=== PATIENT | male | born 1990 | race Caucasian/White ===

== ENCOUNTER 2018-11-17 15:18 | Emergency (ER) | payer OTHER ==
[2018-11-17 15:22] VITALS: RESP 18
[2018-11-17] MEDS ORDERED: SODIUM CHLORIDE 0.9% 1,000 ML IV STA (15:34)
--- NOTE | 2018-11-17 15:37 | ED ---
General Adult HPI - General Chief complaint: Urogenital Stated complaint: Rt flank pain Time Seen by Provider: 11/17/18 15:25 Source: patient, RN notes reviewed Mode of arrival: ambulatory Limitations: no limitations - History of Present Illness Initial comments: This a 28-year-old male presents emergency Department with chief complaint of right-sided abdominal, right flank pain. Patient states that he's been having on and off issues for a while but recently has worsened. Patient states that it is much worse when he eats. Patient does admit to occasional nausea but no vomiting, diarrhea, constipation, dysuria or hematuria. Patient states that he has had a HIDA scan years ago in which she was told he had biliary dyskinesia. Patient denies any fever, chills. Denies any chest pain or shortness of breath. - Related Data Home Medications Medication Instructions Recorded Confirmed No Known Home Medications 11/17/18 11/17/18 Allergies Allergy/AdvReac Type Severity Reaction Status Date / Time cefaclor [From Ceclor] Allergy Unknown Verified 11/17/18 16:11 Childhood Review of Systems ROS Statement: Those systems with pertinent positive or pertinent negative responses have been documented in the HPI. ROS Other: All systems not noted in ROS Statement are negative. Past Medical History Past Medical History: No Reported History History of Any Multi-Drug Resistant Organisms: None Reported Past Surgical History: Appendectomy Past Psychological History: No Psychological Hx Reported Smoking Status: Never smoker Past Alcohol Use History: Rare Past Drug Use History: None Reported General Exam Limitations: no limitations General appearance: alert, in no apparent distress Head exam: Present: atraumatic, normocephalic, normal inspection Respiratory exam: Present: normal lung sounds bilaterally. Absent: respiratory distress, wheezes, rales, rhonchi, stridor Cardiovascular Exam: Present: regular rate, normal rhythm, normal heart sounds. Absent: systolic murmur, diastolic murmur, rubs, gallop, clicks GI/Abdominal exam: Present: soft, tenderness (Mild to moderate right upper quadrant), normal bowel sounds. Absent: distended, guarding, rebound, rigid Back exam: Absent: CVA tenderness (R), CVA tenderness (L) Skin exam: Present: warm, dry, intact, normal color. Absent: rash Course Vital Signs 11/17/18 15:19 Temperature 98.1 F Pulse Rate 67 Respiratory 18 Rate Blood Pressure 151/94 O2 Sat by Pulse 100 Oximetry Medical Decision Making - Medical Decision Making 28-year-old male presented for right upper quadrant abdominal pain and right flank pain. Patient had ultrasound, lab work and urinalysis. Patient has multiple large gallstones. This most likely is cause of his pain. Patient will be discharged with follow-up with Dr. Shin for possible cholecystectomy. Patient agrees this plan return parameters were discussed. - Lab Data Result diagrams: 11/17/18 15:48 11/17/18 15:48 Lab Results 11/17/18 11/17/18 11/17/18 Range/Units 15:48 15:48 15:48 WBC 6.6 (3.8-10.6) k/uL RBC 5.34 (4.30-5.90) m/uL Hgb 15.5 (13.0-17.5) gm/dL Hct 45.5 (39.0-53.0) % MCV 85.2 (80.0-100.0) fL MCH 29.0 (25.0-35.0) pg MCHC 34.0 (31.0-37.0) g/dL RDW 13.5 (11.5-15.5) % Plt Count 216 (150-450) k/uL Neutrophils % 63 % Lymphocytes % 24 % Monocytes % 8 % Eosinophils % 3 % Basophils % 1 % Neutrophils # 4.2 (1.3-7.7) k/uL Lymphocytes # 1.5 (1.0-4.8) k/uL Monocytes # 0.5 (0-1.0) k/uL Eosinophils # 0.2 (0-0.7) k/uL Basophils # 0.1 (0-0.2) k/uL Sodium 140 (137-145) mmol/L Potassium 4.4 (3.5-5.1) mmol/L Chloride 106 (98-107) mmol/L Carbon Dioxide 25 (22-30) mmol/L Anion Gap 9 mmol/L BUN 12 (9-20) mg/dL Creatinine 0.69 (0.66-1.25) mg/dL Est GFR (CKD-EPI)AfAm >90 (>60 ml/min/1.73 sqM) Est GFR (CKD-EPI)NonAf >90 (>60 ml/min/1.73 sqM) Glucose 89 (74-99) mg/dL Calcium 9.5 (8.4-10.2) mg/dL Total Bilirubin 1.2 (0.2-1.3) mg/dL AST 27 (17-59) U/L ALT 41 (21-72) U/L Alkaline Phosphatase 59 (38-126) U/L Total Protein 7.2 (6.3-8.2) g/dL Albumin 4.8 (3.5-5.0) g/dL Lipase 135 (23-300) U/L Urine Color Light Yellow Urine Appearance Clear (Clear) Urine pH 5.5 (5.0-8.0) Ur Specific [place] 1.013 (1.001-1.035) Urine Protein Negative (Negative) Urine Glucose (UA) Negative (Negative) Urine Ketones Negative (Negative) Urine Blood Negative (Negative) Urine Nitrite Negative (Negative) Urine Bilirubin Negative (Negative) Urine Urobilinogen <2.0 (<2.0) mg/dL Ur Leukocyte Esterase Negative (Negative) Disposition Clinical Impression: Cholelithiasis Disposition: HOME SELF-CARE Condition: Stable Instructions (If sedation given, give patient instructions): Gallstones (ED) Additional Instructions: Please return to the Emergency Department if symptoms worsen or any other concerns. Is patient prescribed a controlled substance at d/c from ED?: No Referrals: None,Stated [Primary Care Provider] - 1-2 days Nickolas Shin MD [STAFF PHYSICIAN] - 1-2 days Time of Disposition: 16:48
[2018-11-17 16:08] LABS: Basophils # (A) 0.1 k/uL (0-0.2); Basophils % (A) 1 %; Eosinophils # (A) 0.2 k/uL (0-0.7); Eosinophils % (A) 3 %; HCT 45.5 % (39.0-53.0); HGB 15.5 gm/dL (13.0-17.5); Lymphocytes # (A) 1.5 k/uL (1.0-4.8); Lymphocytes % (A) 24 %; MCV 85.2 fL (80.0-100.0); Mean Platelet Volume 6.9; Monocytes # (A) 0.5 k/uL (0-1.0); Monocytes % (A) 8 %; Neutrophils # (A) 4.2 k/uL (1.3-7.7); Neutrophils % (A) 63 %; Platelet Count 216 k/uL (150-450); RBC 5.34 m/uL (4.30-5.90); RDW 13.5 % (11.5-15.5); WBC 6.6 k/uL (3.8-10.6)
[2018-11-17 16:15] LABS: Appearance,Urine Clear (Clear); Bilirubin,Urine Negative (Negative); Blood,Urine Negative (Negative); Color,Urine Light Yellow; Glucose,Urine (UA) Negative (Negative); Ketones,Urine Negative (Negative); Leukocyte Esterase,Urine Negative (Negative); Nitrite,Urine Negative (Negative); PH, Urine 5.5 (5.0-8.0); Protein,Urine Negative (Negative); Specific Gravity,Urine 1.013 (1.001-1.035); Urobilinogen,Urine <2.0 mg/dL (<2.0)
[2018-11-17 16:21] LABS: ALT 41 U/L (21-72); AST 27 U/L (17-59); Albumin 4.8 g/dL (3.5-5.0); Alkaline Phosphatase 59 U/L (38-126); Anion Gap 9 mmol/L; Blood Urea Nitrogen 12 mg/dL (9-20); Calcium 9.5 mg/dL (8.4-10.2); Carbon Dioxide 25 mmol/L (22-30); Chloride 106 mmol/L (98-107); Glucose 89 mg/dL (74-99); Lipase 135 U/L (23-300); Potassium 4.4 mmol/L (3.5-5.1); Sodium 140 mmol/L (137-145); Total Bilirubin 1.2 mg/dL (0.2-1.3); Total Protein 7.2 g/dL (6.3-8.2)
--- NOTE | 2018-11-17 16:42 | US ---
EXAMINATION TYPE: US abdomen limited DATE OF EXAM: 11/17/2018 COMPARISON: NONE CLINICAL HISTORY: Pain -RUQ, right flank. Intermittent RUQ pain for 1-2 years. Patient ate 3-4 hours prior to exam EXAM MEASUREMENTS: Liver Length: 16.0 cm Gallbladder Wall: 0.2 cm CBD: 0.2 cm Right Kidney: 12.6 x 5.7 x 5.9 cm Technical limitations due to overlying bowel content Pancreas: Tail obscured by overlying bowel gas Liver: attenuating, heterogeneous Gallbladder: at least 3 stones noted, 1 near the neck Evidence for sonographic Craven's sign: yes CBD: limited evaluation Right Kidney: no evidence of hydronephrosis IMPRESSION: Multiple large gallstones. No dilated ducts. No gallbladder wall thickening seen.
[2018-11-17 17:06] VITALS: BP 127/83; PULSE 73; TEMP 98
== END 2018-11-17 17:06 | disposition home or self-care (01) ==
LOC: EC 15:18
DX: K80.20 Calculus of gallbladder without cholecystitis without obstruction (principal); Z88.1 Allergy status to other antibiotic agents; Z90.49 Acquired absence of other specified parts of digestive tract
CPT/HCPCS: 36415; 76705; 80053; 81003; 83690; 85025; 99284

== ENCOUNTER 2018-12-02 06:38 | Day surgery (SDC) | payer OTHER ==
[2018-11-27 11:11] VITALS: BMI 36.1
[~2018-12-02 06:38] MED LIST: DEXAMETHASONE SOD PHOSPHATE 10 MG/ML 1 ML VIAL IV ONE; GENTAMICIN 320 MG in SODIUM CHLORIDE 0.9% 100 ML IVPB ONE; HEPARIN SODIUM,PORCINE 5,000 UNIT/ML 1 ML VIAL SQ ONE; HYDROmorphone 0.5 MG/0.5 ML SYRINGE IVP PRN; LACTATED RINGERS 1,000 ML IV SCH; LIDOCAINE 1% 20 ML VIAL (10MG/ML) FOR IV START INTRADERMA PRN; MIDAZOLAM (PF) 2 MG/2 ML VIAL IV PRN; ONDANSETRON 4 MG/2 ML VIAL IVP ONE; SCOPOLAMINE 1.5MG/72HR PATCH TRANSDERM ONE
--- NOTE | 2018-12-02 07:49 | P.GSHP ---
History of Present Illness H&P Date: 12/02/18 Chief Complaint: Right upper quadrant pain This a 28-year-old male presents today for laparoscopic cholestatic. Patient's had complaints of quadrant pain. He is found have cholelithiasis. Past Medical History Past Medical History: No Reported History Additional Past Medical History / Comment(s): CHILDHOOD SEIZURES History of Any Multi-Drug Resistant Organisms: None Reported Past Surgical History: Appendectomy Past Anesthesia/Blood Transfusion Reactions: No Reported Reaction Smoking Status: Never smoker - Past Family History Mother Family Medical History: No Reported History Medications and Allergies Home Medications Medication Instructions Recorded Confirmed Type No Known Home Medications 11/17/18 12/02/18 History Allergies Allergy/AdvReac Type Severity Reaction Status Date / Time cefaclor [From Ceclor] Allergy Unknown Verified 11/27/18 11:07 Childhood Surgical - Exam Vital Signs Temp Pulse Resp BP Pulse Ox 98.6 F 85 16 124/73 97 12/02/18 07:31 12/02/18 07:31 12/02/18 07:31 12/02/18 07:31 12/02/18 07:31 - General well developed, well nourished, no distress - Eyes PERRL - ENT normal pinna - Neck no masses - Respiratory normal expansion - Cardiovascular Rhythm: regular - Abdomen Abdomen: soft, non tender Assessment and Plan Assessment: Quadrant pain, cholelithiasis. We'll perform laparoscopic cholecystectomy.
[2018-12-02] MEDS ORDERED: LIDOCAINE 1% INJ 10MG/ML (20 ML MDV) ONE (07:56)
[2018-12-02] MEDS ORDERED: fentaNYL (PF) 50 MCG/ML 2 ML AMP ONE (07:56)
[2018-12-02] MEDS ORDERED: PHENYLEPHRINE-0.9% NACL SYG 1 MG/10 ML SYRINGE ONE (07:56)
[2018-12-02] MEDS ORDERED: PROPOFOL 10 MG/ML 20 ML VIAL IV ONE (07:56)
[2018-12-02] MEDS ORDERED: ROCURONIUM BROMIDE 10 MG/ML 10 ML VIAL IV ONE (07:56)
[2018-12-02] MEDS ORDERED: KETOROLAC 30 MG/ML 1 ML VIAL ONE (07:56)
[2018-12-02] MEDS ORDERED: MIDAZOLAM 2 MG/2 ML VIAL ONE (07:56)
[2018-12-02] MEDS ORDERED: HYDROmorphone (PF) 1 MG/ML ONE (07:56)
[2018-12-02] MEDS ORDERED: GLYCOPYRROLATE 0.2 MG/ML 2 ML VIAL ONE (07:56)
[2018-12-02] MEDS ORDERED: SUCCINYLCHOLINE CHLORIDE 100 MG/5 ML SYR IV ONE (07:56)
[2018-12-02] MEDS: CLINDAMYCIN 900 MG in DEXTROSE 5% IN WATER 50 ML IVPB ONE ×4 (08:00→08:15)
[2018-12-02] MEDS ORDERED: BUPIVACAINE-EPI 0.5%-1:200,000 10 ML VIAL SQ ONE (08:28)
[2018-12-02 09:04] VITALS: TEMP 97.6
--- NOTE | 2018-12-02 09:16 | P.OP ---
Date of Procedure: 12/02/18 Preoperative Diagnosis: Cholelithiasis Cholecystitis Postoperative Diagnosis: Cholelithiasis Cholecystitis Procedure(s) Performed: Upper scopic cholecystectomy Anesthesia: BETTY Surgeon: Nickolas Shin Pathology: other (Gallbladder) Condition: stable Disposition: PACU Description of Procedure: The patient was placed on the operating table. The patient received a general endotracheal tube anesthesia. The patients abdomen was prepped and draped in the usual sterile fashion. Through an infraumbilical stab incision, the fascia of the anterior abdominal wall was grasped with a pair of Kochers and then the Veress needle was placed in the peritoneal cavity. Position of the Veress needle was confirmed with positive drop test. The abdomen was then insufflated. After adequate insufflation, the 10 mm trocar was placed in the peritoneal cavity. Following this the laparoscope was placed in the peritoneal cavity. The patient was placed in the head-up, right side up position and then a 5 mm trocar was placed in the right lateral and right subcostal position under direct visualization. A 8 mm trocar was placed in the epigastric position. The gallbladder was grasped in the fundus and infundibulum. Traction on the gallbladder was placed in the lateral and the cephalad positions. The triangle of Calot was visualized.. The cystic duct was bluntly dissected until the union of the cystic duct and common bile duct was seen. The cystic duct was then divided and sealed with the Harmonic scissors. A PDS Endoloop was then placed throughout the cystic duct stump. The cystic artery divided and sealed with the Harmonic scissors. The gallbladder was then removed from the liver bed using Harmonic scissors. The gallbladder was then extracted through the epigastric port site. Operative field was checked for any bleeding spots and Harmonic scissors was used to coagulate the liver bed. The abdomen was irrigated. The trocars were removed. The skin was closed using interrupted 3-0 Vicryl suture. Dermabond dressing were applied. The patient tolerated the procedure well.
[2018-12-02] MEDS ORDERED: LACTATED RINGERS 1,000 ML IV ONE (09:56)
[2018-12-02 10:33] VITALS: RESP 18
[2018-12-02 11:44] VITALS: BP 128/78
[2018-12-02 11:52] VITALS: PULSE 80
== END 2018-12-02 12:00 | disposition home or self-care (01) ==
LOC: OR 06:38
PROVIDERS: ATTEND Surgery
DX: K80.10 Calculus of gallbladder with chronic cholecystitis without obstruction (principal); Z88.1 Allergy status to other antibiotic agents
CPT/HCPCS: 88304; 47562; J2250; J1644; J1100; J2405; J2001; J3010; J1885; J1170; J2370; J0330; J2704

== ENCOUNTER 2024-08-07 18:22 | Emergency (ER) | payer OTHER ==
[2024-08-07 18:26] VITALS: RESP 18
[2024-08-07] MEDS: ONDANSETRON 4 MG/2 ML VIAL IVP STA (19:05)
[2024-08-07] MEDS: KETOROLAC 15 MG/ML 1 ML VIAL IVP STA (19:05)
[2024-08-07] MEDS: SODIUM CHLORIDE 0.9% 1,000 ML IV STA (19:07)
--- NOTE | 2024-08-07 19:07 | ED ---
General Adult HPI - General Chief complaint: Chest Pain Stated complaint: chest pain/CHESTER Time Seen by Provider: 08/07/24 18:35 Source: patient, RN notes reviewed, old records reviewed Mode of arrival: ambulatory Limitations: no limitations - History of Present Illness Initial comments: Patient is a 34-year-old male who presents emergency department plaint chest pain. Has been present for 1 day. Has a history of cholecystectomy, appendectomy. States the pain is over the right side of his chest. Feels like a sharp pressure sensation that radiates across the right side of his chest. Worse with certain movements and deep breaths then. Denies any fevers, chills, cough. Does endorse some nausea as well as an episode of nonbilious nonbloody emesis. Denies any diarrhea. Denies any congestion. Denies shortness of breath. Has no other acute complaints at this time. Presents for further evaluation at this time over concern for chest pain. Denies any associated radiation to the arms or shoulders and also denies any diaphoretic episodes with it. Uncertain regarding family history of cardiac events.Denies recent long distance travel. Denies lower extremity swelling. - Related Data Previous Rx's Medication Instructions Recorded Docusate [Colace] 100 mg PO BID #20 capsule 12/02/18 HYDROcodone/APAP 7.5-325MG [[place] 1 tab PO Q6HR PRN 3 Days #10 tab 12/02/18 7.5-325] Cyclobenzaprine [Flexeril] 5 mg PO BID PRN 5 Days #10 tablet 08/07/24 Allergies Allergy/AdvReac Type Severity Reaction Status Date / Time cefaclor [From [facility]] Allergy Unknown Verified 11/27/18 11:07 Childhood Review of Systems ROS Statement: Those systems with pertinent positive or pertinent negative responses have been documented in the HPI. Review of Systems: CONST: Denies fever EYES: Denies blurry vision ENT: Denies nasal congestion C/V: Endorses right-sided chest pain RESP: Denies shortness of breath GI: Denies abdominal pain : Denies dysuria SKIN: Denies rash. MSK: Denies joint pain. NEURO: Denies headache ROS Other: All systems not noted in ROS Statement are negative. Past Medical History Past Medical History: No Reported History Additional Past Medical History / Comment(s): CHILDHOOD SEIZURES History of Any Multi-Drug Resistant Organisms: None Reported Past Surgical History: Appendectomy Past Anesthesia/Blood Transfusion Reactions: No Reported Reaction Past Psychological History: Anxiety, Depression Smoking Status: Never smoker Past Alcohol Use History: Rare Past Drug Use History: None Reported - Past Family History Mother Family Medical History: No Reported History General Exam - General Exam Comments Initial Comments: General: Appears in no acute distress. HEAD: Normal with no signs of head trauma. EYES: EOMI ENT: Hearing grossly intact, normal oropharynx. RESPIRATORY: Clear breath sounds bilaterally. No wheezes, rales, or rhonchi. C/V: Regular rate and rhythm. S1 and S2 auscultated, no edema, peripheral pulses 2+ and intact throughout ABD: Abd is soft, nontender, nondistended EXT: No obvious deformity. Tenderness to palpation minimally on the right side of the chest. Tenderness with passive and active movement of the thorax as well as arms. SKIN: No rashes or lesions observed on exposed skin. NEURO: Alert and oriented x 4. Limitations: no limitations Course Vital Signs 08/07/24 08/07/24 18:24 21:34 Temperature 98.7 F 98.2 F Pulse Rate 79 84 Respiratory 18 18 Rate Blood Pressure 154/103 139/110 O2 Sat by Pulse 98 98 Oximetry Medical Decision Making - Medical Decision Making Was pt. sent in by a medical professional or institution ([facility] Reyes, SLITTER HELPER, urgent care, hospital, or penitentiary...) When possible be specific @ -No Did you speak to anyone other than the patient for history (EMS, parent, family, police, friend...)? What history was obtained from this source @ -No Did you review nursing and triage notes (agree or disagree)? Why? @ -I reviewed and agree with nursing and triage notes Were old charts reviewed (outside hosp., previous admission, EMS record, old EKG, old radiological studies, urgent care reports/EKG's, penitentiary records)? Report findings @ -Old charts reviewed confirming patient's history of cholecystectomy, appendectomy Differential Diagnosis (chest pain, altered mental status, abdominal pain women, abdominal pain men, vaginal bleeding, weakness, fever, dyspnea, syncope, headache, dizziness, GI bleed, back pain, seizure, CVA, palpatations, mental health, musculoskeletal)? @ -Differential Chest Pain: Stable Angina, Unstable Angina, STEMI, NSTEMI Aortic Dissection, Pneumothorax, Musculoskeletal, Esophageal Spasm GERD, Cholecystitis, Pancreatitis, Zoster, this is not meant to be an all-inclusive list. EKG interpreted by me (3pts min.). @ -As above X-rays interpreted by me (1pt min.). @ -Chest x-ray reveals no obvious acute cardiopulmonary process. CT interpreted by me (1pt min.). @ -None done U/S interpreted by me (1pt. min.). @ -None done What testing was considered but not performed or refused? (CT, X-rays, U/S, labs)? Why? @ -None What meds were considered but not given or refused? Why? @ -None Did you discuss the management of the patient with other professionals (professionals i.e. , PA, SLITTER HELPER, lab, RT, psych nurse, administrator social welfare, family lawyer, teacher, public relations officer, outpatient case manager)? Give summary @ -No Was smoking cessation discussed for >3mins.? @ -No Was critical care preformed (if so, how long)? @ -No Were there social determinants of health that impacted care today? How? (Homelessness, low income, unemployed, alcoholism, drug addiction, transportation, low edu. Level, literacy, decrease access to med. care, skilled nursing, rehab)? @ -No Was there de-escalation of care discussed even if they declined (Discuss DNR or withdrawal of care, Hospice)? DNR status @ -No What co-morbidities impacted this encounter? (DM, HTN, Smoking, COPD, CAD, Cancer, CVA, ARF, Chemo, Hep., AIDS, mental health diagnosis, sleep apnea, morbid obesity)? @ -None Was patient admitted / discharged? Hospital course, mention meds given and route, prescriptions, significant lab abnormalities, going to OR and other pe rtinent info. @ -Patient presents with atypical chest pain. We will obtain cardiac workup in addition to abdominal laboratory studies. Patient be symptomatically treated with IV fluids, Zofran, Toradol. Patient was in agreement this plan. Vitals are within acceptable limits. EKG shows no signs of acute ischemia. Chest x-ray unremarkable.Patient's laboratory studies are unremarkable. This includes undetectable D-dimer and undetectable troponin. On reevaluation, patient states his pain is improved. We discussed his workup. His atypical somewhat more likely chest wall pain. We did discuss options for discharge versus admission which, patient's heart score is low currently. Patient elects to have second troponin as well as repeat EKG obtained. Patient be given a dose of Flexeril. He was in agreement this plan. Repeat troponin remains undetectable. Repeat EKG shows no acute dynamic changes. On reevaluation, patient feels improved. Discussed the results with him. Diagnosis will be chest wall pain. Recommend use of ibuprofen and Tylenol at home for pain. Return to the emergency department if worsening symptoms. Recommended follow-up with PCP. He was in agreement this plan. I instructed the patient to follow up with their PCP in the next 1-3 days. I explained that the patient should return to the emergency department if they experience any worsening symptoms. Strict return precautions were discussed with the patient. The patient expressed understanding of these instructions. I answered all questions that the patient had. The patient was discharged home in good condition with their prescriptions and follow up information. Undiagnosed new problem with uncertain prognosis? @ -No Drug Therapy requiring intensive monitoring for toxicity (Heparin, Nitro, Insulin, Cardizem)? @ -No Were any procedures done? @ -No Diagnosis/symptom? @ -Chest wall pain Acute, or Chronic, or Acute on Chronic? @ -Acute Uncomplicated (without systemic symptoms) or Complicated (systemic symptoms)? @ -uncomplicated Side effects of treatment? @ -None Exacerbation, Progression, or Severe Exacerbation] @ -No Poses a threat to life or bodily function? @ -Unlikely - Lab Data Result diagrams: 08/07/24 19:03 08/07/24 19:03 Lab Results 08/07/24 08/07/24 08/07/24 Range/Units 19:03 19:03 19:03 WBC 10.3 (3.8-10.6) k/uL RBC 5.57 (4.30-5.90) m/uL Hgb 15.5 (13.0-17.5) gm/dL Hct 47.4 (39.0-53.0) % MCV 85.0 (80.0-100.0) fL MCH 27.7 (25.0-35.0) pg MCHC 32.6 (31.0-37.0) g/dL RDW 13.1 (11.5-15.5) % Plt Count 276 (150-450) k/uL MPV 7.2 Neutrophils % 74 % Lymphocytes % 17 % Monocytes % 6 % Eosinophils % 1 % Basophils % 0 % Neutrophils # 7.6 (1.3-7.7) k/uL Lymphocytes # 1.8 (1.0-4.8) k/uL Monocytes # 0.7 (0-1.0) k/uL Eosinophils # 0.1 (0-0.7) k/uL Basophils # 0.0 (0-0.2) k/uL PT 11.0 (10.0-12.5) sec INR 1.0 (<1.2) APTT 25.1 (22.0-30.0) sec D-Dimer <0.17 (<0.60) mg/L FEU Sodium 140 (137-145) mmol/L Potassium 3.9 (3.5-5.1) mmol/L Chloride 104 (98-107) mmol/L Carbon Dioxide 28 (22-30) mmol/L Anion Gap 8 mmol/L BUN 5 L (9-20) mg/dL Creatinine 0.73 (0.66-1.25) mg/dL Est GFR (CKD-EPI)AfAm >90 (>60 ml/min/1.73 sqM) Est GFR (CKD-EPI)NonAf >90 (>60 ml/min/1.73 sqM) Glucose 95 (74-99) mg/dL Calcium 9.5 (8.4-10.2) mg/dL Magnesium 2.2 (1.6-2.3) mg/dL Total Bilirubin 0.9 (0.2-1.3) mg/dL AST 26 (17-59) U/L ALT 41 (4-49) U/L Alkaline Phosphatase 61 (38-126) U/L Troponin I (0.000-0.034) ng/mL NT-Pro-B Natriuret Pep 37 pg/mL Total Protein 7.2 (6.3-8.2) g/dL Albumin 4.8 (3.5-5.0) g/dL Lipase 93 (23-300) U/L Influenza Type A (PCR) (Not Detectd) Influenza Type B (PCR) (Not Detectd) RSV (PCR) (Not Detectd) SARS-CoV-2 (PCR) (Not Detectd) 08/07/24 08/07/24 08/07/24 Range/Units 19:03 19:03 22:12 WBC (3.8-10.6) k/uL RBC (4.30-5.90) m/uL Hgb (13.0-17.5) gm/dL Hct (39.0-53.0) % MCV (80.0-100.0) fL MCH (25.0-35.0) pg MCHC (31.0-37.0) g/dL RDW (11.5-15.5) % Plt Count (150-450) k/uL MPV Neutrophils % % Lymphocytes % % Monocytes % % Eosinophils % % Basophils % % Neutrophils # (1.3-7.7) k/uL Lymphocytes # (1.0-4.8) k/uL Monocytes # (0-1.0) k/uL Eosinophils # (0-0.7) k/uL Basophils # (0-0.2) k/uL PT (10.0-12.5) sec INR (<1.2) APTT (22.0-30.0) sec D-Dimer (<0.60) mg/L FEU Sodium (137-145) mmol/L Potassium (3.5-5.1) mmol/L Chloride (98-107) mmol/L Carbon Dioxide (22-30) mmol/L Anion Gap mmol/L BUN (9-20) mg/dL Creatinine (0.66-1.25) mg/dL Est GFR (CKD-EPI)AfAm (>60 ml/min/1.73 sqM) Est GFR (CKD-EPI)NonAf (>60 ml/min/1.73 sqM) Glucose (74-99) mg/dL Calcium (8.4-10.2) mg/dL Magnesium (1.6-2.3) mg/dL Total Bilirubin (0.2-1.3) mg/dL AST (17-59) U/L ALT (4-49) U/L Alkaline Phosphatase (38-126) U/L Troponin I <0.012 <0.012 (0.000-0.034) ng/mL NT-Pro-B Natriuret Pep pg/mL Total Protein (6.3-8.2) g/dL Albumin (3.5-5.0) g/dL Lipase (23-300) U/L Influenza Type A (PCR) Not Detected (Not Detectd) Influenza Type B (PCR) Not Detected (Not Detectd) RSV (PCR) Not Detected (Not Detectd) SARS-CoV-2 (PCR) Not Detected (Not Detectd) - EKG Data -: EKG Interpreted by Me EKG Comments: 12-lead Electrocardiogram Interpretation Note EKG was reviewed and interpreted by myself. 12-lead ECG performed at 1847 is interpreted by me as revealing normal sinus rhythm at a rate of 79 beats per minute. [place] is normal. TX interval is 132 ms, QRS duration is 89 ms, QTc is 397 ms.. There were no ST or T wave abnormalities to suggest myocardial ischemia or injury. R wave progression across the precordium was satisfactory. By my interpretation this EKG is non-diagnostic for acute ischemia. Slight isolated T wave inversion in lead III. 12-lead Electrocardiogram Interpretation Note EKG was reviewed and interpreted by myself. 12-lead ECG performed at 2205 is interpreted by me as revealing normal sinus rhythm at a rate of 65 beats per minute. [place] is normal. [place] interval is 143 ms, QRS duration is 97 ms, QTc is 409 ms.. There were no ST or T wave abnormalities to suggest myocardial ischemia or injury. R wave progression across the precordium was satisfactory. By my interpretation this EKG is non-diagnostic for acute ischemia. EKG redemonstrates isolated T wave inversion in lead III. No other obvious acute findings. Disposition Clinical Impression: Chest wall pain Disposition: HOME SELF-CARE Condition: Good Instructions (If sedation given, give patient instructions): Chest Wall Pain (ED) Additional Instructions: Diagnosis chest wall pain. Most likely musculoskeletal in nature. Please follow-up with your PCP in the next 1 to 3 days. Return if any worsening symptoms. Use [id number] analgesia medications as needed as well as the provided Flexeril for pain control. Prescriptions: Cyclobenzaprine [Flexeril] 5 mg PO BID PRN 5 Days #10 tablet PRN Reason: Pain Is patient prescribed a controlled substance at d/c from ED?: No Referrals: None,Stated [Primary Care Provider] - 1-2 days Forms: Area PCPs Time of Disposition: 23:27
[2024-08-07 19:19] LABS: Basophils % (A) 0 %; Eosinophils # (A) 0.1 k/uL (0-0.7); Eosinophils % (A) 1 %; HCT 47.4 % (39.0-53.0); HGB 15.5 gm/dL (13.0-17.5); Lymphocytes # (A) 1.8 k/uL (1.0-4.8); Lymphocytes % (A) 17 %; MCH 27.7 pg (25.0-35.0); MCHC 32.6 g/dL (31.0-37.0); Mean Platelet Volume 7.2; Monocytes # (A) 0.7 k/uL (0-1.0); Monocytes % (A) 6 %; Neutrophils # (A) 7.6 k/uL (1.3-7.7); Neutrophils % (A) 74 %; Platelet Count 276 k/uL (150-450); RBC 5.57 m/uL (4.30-5.90); RDW 13.1 % (11.5-15.5); WBC 10.3 k/uL (3.8-10.6)
--- NOTE | 2024-08-07 19:23 | XR ---
EXAMINATION TYPE: XR chest 2V DATE OF EXAM: 08/07/2024 7:15 PM COMPARISON: None. CLINICAL INDICATION: Male, 34 years old with history of Chest Pain, TECHNIQUE: XR chest 2V view(s) obtained. FINDINGS: The heart size is normal. The pulmonary vasculature is normal. The lungs are clear. IMPRESSION: 1. No acute pulmonary process. [facility], , 08/07/2024 7:20 PM
[2024-08-07 19:29] LABS: ALT 41 U/L (4-49); AST 26 U/L (17-59); African American GFR (CKD) >90 (>60 ml/min/1.73 sqM); Albumin 4.8 g/dL (3.5-5.0); Alkaline Phosphatase 61 U/L (38-126); Anion Gap 8 mmol/L; Blood Urea Nitrogen 5 mg/dL (9-20); Calcium 9.5 mg/dL (8.4-10.2); Carbon Dioxide 28 mmol/L (22-30); Chloride 104 mmol/L (98-107); Glucose 95 mg/dL (74-99); Lipase 93 U/L (23-300); Magnesium 2.2 mg/dL (1.6-2.3); Non-African American GFR(CKD) >90 (>60 ml/min/1.73 sqM); Potassium 3.9 mmol/L (3.5-5.1); Sodium 140 mmol/L (137-145); Total Bilirubin 0.9 mg/dL (0.2-1.3); Total Protein 7.2 g/dL (6.3-8.2)
[2024-08-07 19:34] LABS: Partial Thromboplastin Time 25.1 sec (22.0-30.0)
[2024-08-07 19:37] LABS: NT-Pro-B-Type Natriuretic Pept 37 pg/mL
[2024-08-07 21:35] VITALS: TEMP 98.2
[2024-08-07] MEDS: CYCLOBENZAPRINE 5 MG TAB PO STA (21:35)
[2024-08-08 00:11] VITALS: BP 136/84; PULSE 74
== END 2024-08-08 00:10 | disposition home or self-care (01) ==
LOC: EC 18:22
DX: R07.89 Other chest pain (principal); Z88.1 Allergy status to other antibiotic agents
CPT/HCPCS: 93005; 85379; 83880; 80053; 83690; 83735; 84484; 85025; 85610; 85730; 87636; 71046; 99285; 96374; 96375; 96361; J2405; J1885